=== PATIENT | male | born 1950 | race Caucasian/White ===

== ENCOUNTER 2017-02-05 17:26 | Emergency (ER) | payer BC ==
[2017-02-05 17:59] VITALS: BP 140/90; PULSE 61; TEMP 98; BMI 23.6
--- NOTE | 2017-02-05 19:37 | PDOC ---
History of Present Illness - General History Source: Patient Exam Limitations: No Limitations - History of Present Illness Initial Comments: 02/05/17 20:07 The patient is a 66 year old male with a significant past medical history of aortic valve replacement (in 2013 not taking any meds), who presents to the ED with swelling of the left lower extremity for 4 days. Patient states it started after a flight to [place]. He swam in a marathon the next day. He flew back today. He denies SOB, chest pain. Denies nausea, vomiting, diarrhea. Denies dysuria, hematuria, frequency. Pt states his heart is healthy. Pt states there are no thrombotic risk factors. <Felix Ty - Last Filed: 02/05/17 20:07> <Los Graves - Last Filed: 02/06/17 05:46> - General Chief Complaint: Edema Stated Complaint: LEFT FOOT SWELLING Time Seen by Provider: 02/05/17 19:00 Past History <Felix Ty - Last Filed: 02/05/17 20:07> - Surgical History Abdominal Surgery: Yes (INGUINAL HERNIA REPAIR) Appendectomy: Yes Cardiac Surgery: Yes (BOVINE HEART VALVE REPLACEMENT) - Immunization History Td Vaccination: Yes - Psycho/Social/Smoking Cessation Hx Anxiety: No Suicidal Ideation: No Smoking Status: No Smoking History: Unknown if ever smoked Have you smoked in the past 12 months: No Number of Cigarettes Smoked Daily: 0 Cigars Per Day: 0 Information on smoking cessation initiated: No Hx Alcohol Use: Yes (1 PER DAY) Drug/Substance Use Hx: No Substance Use Type: Alcohol Hx Substance Use Treatment: No <Los Graves - Last Filed: 02/06/17 05:46> - Past Medical History Allergies/Adverse Reactions: Allergies Allergy/AdvReac Type Severity Reaction Status Date / Time No Known Allergies Allergy Verified 02/05/17 17:43 Home Medications: Ambulatory Orders Aspirin [ASA] 81 mg PO DAILY 09/18/12 Review of Systems - Review of Systems Comments:: 02/05/17 20:08 GENERAL/CONSTITUTIONAL: No fever or chills. No weakness. HEAD, EYES, EARS, NOSE AND THROAT: No change in vision. No ear pain or discharge. No sore throat. CARDIOVASCULAR: No chest pain or shortness of breath. RESPIRATORY: No cough, wheezing, or hemoptysis. GASTROINTESTINAL: No nausea, vomiting, diarrhea or constipation. GENITOURINARY: No dysuria, frequency, or change in urination. MUSCULOSKELETAL: + swelling to the lower left extremity. No neck or back pain. SKIN: No rash NEUROLOGIC: No headache, vertigo, loss of consciousness, or change in strength/ sensation. ENDOCRINE: No increased thirst. No abnormal weight change. HEMATOLOGIC/LYMPHATIC: No anemia, easy bleeding, or history of blood clots. ALLERGIC/IMMUNOLOGIC: No hives or skin allergy. <Felix Ty - Last Filed: 02/05/17 20:07> *Physical Exam - Vital Signs Last Vital Signs Temp Pulse Resp BP Pulse Ox 98 F 61 20 140/90 98 02/05/17 17:27 02/05/17 17:27 02/05/17 17:27 02/05/17 17:27 02/05/17 17:27 - Physical Exam Comments: 02/05/17 20:09 GENERAL: Awake, alert, and fully oriented, in no acute distress HEAD: No signs of trauma EYES: PERRLA, EOMI, sclera anicteric, conjunctiva clear ENT: Auricles normal inspection, hearing grossly normal, nares patent, oropharynx clear without exudates. Moist mucosa NECK: Normal ROM, supple, no lymphadenopathy, JVD, or masses LUNGS: Breath sounds equal, clear to auscultation bilaterally. No wheezes, and no crackles HEART: Regular rate and rhythm, normal S1 and S2, no murmurs, rubs or gallops. ABDOMEN: Soft, nontender, normoactive bowel sounds. No guarding, no rebound. No masses EXTREMITIES: 1+ edema of the lower half of the left calf to his left foot. Normal range of motion. No clubbing or cyanosis. No cords, erythema, or tenderness. No thrombotic risk factors. NEUROLOGICAL: Cranial nerves II through XII grossly intact. Normal speech, normal gait SKIN: Warm, Dry, normal turgor. Scar on his chest. <Felix Ty - Last Filed: 02/05/17 20:07> - Vital Signs Last Vital Signs Temp Pulse Resp BP Pulse Ox 98 F 61 20 140/90 98 02/05/17 17:27 02/05/17 17:27 02/05/17 17:27 02/05/17 17:27 02/05/17 17:27 <Los Graves - Last Filed: 02/06/17 05:46> Medical Decision Making - Medical Decision Making 02/06/17 05:46 no dvt on duplex elevation, vania wrap pcp fu <Los Graves - Last Filed: 02/06/17 05:46> *DC/Admit/Observation/Transfer - Attestations Scribe Attestion: 02/05/17 20:10 Documentation prepared by Felix Ty, acting as medical collector for Los Graves MD. <Felix Ty - Last Filed: 02/05/17 20:07> <Los Graves - Last Filed: 02/06/17 05:46> Diagnosis at time of Disposition: Left leg swelling - Discharge Dispostion Disposition: HOME Condition at time of disposition: Stable - Patient Instructions Printed Discharge Instructions: DI for Peripheral Edema, Unilateral Additional Instructions: Please followup with your doctor
== END 2017-02-05 19:39 | disposition home or self-care (01) ==
LOC: FER 17:26
DX: M79.89 Other specified soft tissue disorders (principal); Z95.2 Presence of prosthetic heart valve; Z79.82 Long term (current) use of aspirin
CPT/HCPCS: 93971-TC; 99281-25

== ENCOUNTER 2023-10-15 08:32 | Emergency (ER) | payer BC, OTHER ==
[2023-10-15 09:04] VITALS: BP 137/67; PULSE 52; RESP 18; TEMP 97.8; BMI 22.9
== END 2023-10-15 09:03 | disposition home or self-care (01) ==
LOC: FER 08:32
DX: H92.02 Otalgia, left ear (principal); H69.92 Unspecified Eustachian tube disorder, left ear
CPT/HCPCS: 99283-25

== ENCOUNTER 2024-03-23 13:36 | Emergency (ER) | payer OTHER ==
[2024-03-23 13:53] VITALS: BP 120/74; PULSE 56; RESP 18; TEMP 98; BMI 23.6
== END 2024-03-23 15:52 | disposition home or self-care (01) ==
LOC: FER 13:36
DX: S80.12XA Contusion of left lower leg, initial encounter (principal); V17.2XXA Unspecified pedal cyclist injured in collision with fixed or stationary object in nontraffic accident, initial encounter
CPT/HCPCS: 93971-TC; 99284-25